=== PATIENT | female | born 1990 | race Hispanic/Latino ===

== ENCOUNTER → 2023-09-12 | Outpatient (CLI) | payer SELFPAY ==
[2023-09-12 16:36] LABS: CREATININE 0.5 mg/dL (0.5-1.5); POTASSIUM 3.7 mmol/L (3.5-5.1)
== END | disposition home or self-care (01) ==
LOC: LAB 15:11
PROVIDERS: ATTEND Internal Medicine Cardiovascular Disease
DX: M79.10 Myalgia, unspecified site (principal)
CPT/HCPCS: 36415; 80048; 85651; 86038; 86431